=== PATIENT | female | born 1995 | race Caucasian/White ===

== ENCOUNTER 2022-05-24 10:29 | Emergency (ER) | payer OTHER ==
[~2022-05-24] VITALS: Ht 157.5 cm; Wt 70.3 kg
--- NOTE | 2022-05-24 10:30 | NUR ---
PT BIB [facility] C/C ALOC. PT FOUND ON GROUND WITH BEER BOTTLES NEXT TO PT. BYSTANDERS CALLED EMS. ON ARRIVAL PT NOT ANSWERING QUESTIONS BUT FOLLOWING COMMANDS. NSR ON MONITOR.
[2022-05-24 10:35] VITALS: BP 111/67
--- NOTE | 2022-05-24 10:50 | NUR ---
ATTEMPTED TO PERFORM EKG ON PT. ASKED THE PT MULTIPLE TIMES TO LAY FLAT ON HER BACK, AND SHE REFUSED TO TURN OVER. DR. FARMER MADE AWARE.
[2022-05-24 11:21] LABS: BASOPHILS % (AUTO) 0.4 % (0.0-2.0); EOSINOPHILS # (AUTO) 0.2 K/uL (0-0.4); HEMATOCRIT 36.5 % (36-48); HEMOGLOBIN 12.3 g/dL (12.0-16.0); LYMPHOCYTES # (AUTO) 3.5 K/uL (2.5-16.5); LYMPHOCYTES % (AUTO) 41.5 % (20.5-51.1); MEAN CORPUSCULAR HEMOGLOBIN 30 pg (27-31); MEAN CORPUSCULAR HGB CONC 34 g/dL (33-37); MEAN CORPUSCULAR VOLUME 88.8 fL (80-94); MONOCYTES % (AUTO) 11.3 % (1.7-9.3); NEUTROPHILS # (AUTO) 3.8 K/uL (1.8-7.7); NEUTROPHILS % (AUTO) 44.8 % (42.2-75.2); PLATELET COUNT (AUTO) 255 K/uL (140-450); RED CELL DISTRIBUTION WIDTH 13.9 % (11.6-13.7); WHITE BLOOD COUNT (AUTO) 8.5 K/uL (4.8-10.8)
[2022-05-24 11:50] LABS: ALBUMIN 3.2 g/dL (3.4-5.0); ANION GAP 15.1 (8-16); ASPARTATE AMINOTRANSFERASE 18 U/L (15-37); CARBON DIOXIDE 24.2 mmol/L (21-32); CHLORIDE 104 mmol/L (98-107); CREATININE 0.7 mg/dL (0.6-1.3); GFR ARICAN-AMERICAN 130 mL/min (>90); GLUCOSE 79 mg/dL (74-106); POTASSIUM 3.3 mmol/L (3.5-5.1); SALICYLATE < 2.8 mg/dL (2.8-20.0); SODIUM SERUM 140 mmol/L (136-145); TOTAL BILIRUBIN 0.2 mg/dL (0.0-1.0); UREA NITROGEN, BLOOD 13 mg/dL (7-18)
--- NOTE | 2022-05-24 12:30 | NUR ---
PT ASLEEP OFFERED FOOD. PT EATING SANDWHICH AND DRINKING JUICE
[2022-05-24 13:02] LABS: ACETAMINOPHEN < 0.5 ug/ml (10-30)
--- NOTE | 2022-05-24 14:00 | NUR ---
. AOX4 AT THIS TIME. PT GIVEN NAME AND BIRTHDATE
[2022-05-24 15:00] VITALS: BP 122/70
--- NOTE | 2022-05-24 15:00 | NUR ---
Patient discharged with v/s stable. Written and verbal after care instructions given and explained. Patient verbalized understanding. Ambulatory with steady gait. All questions addressed prior to discharge. Advised to follow up with PMD.
== END 2022-05-24 15:00 | disposition home or self-care (01) ==
LOC: MED 10:29 → EDBD 10:29 → MED 15:00
DX: R41.82 Altered mental status, unspecified (principal); F10.129 Alcohol abuse with intoxication, unspecified
CPT/HCPCS: 36415; 80053; 84702; 85025; 93005; 99284; G0480; G0482